=== PATIENT | female | born 1955 ===

== ENCOUNTER → 2024-10-31 | Outpatient (CLI) | payer OTHER ==
[2024-10-31 11:32] LABS: BASOPHILS ABSOLUTE AUTO 0.06 K/mm3 (0.00-0.23); BASOPHILS PERCENT AUTO 1 % (0-2); EOSINOPHILS ABSOLUTE AUTO 0.18 K/mm3 (0.00-0.68); EOSINOPHILS PERCENT AUTO 3 % (0-6); Hematocrit 40.8 % (33.0-51.0); Hemoglobin 13.7 g/dL (11.5-16.0); IMMATURE GRAN ABSOLUTE AUTO 0.02 K/mm3 (0.00-0.10); IMMATURE GRAN PERCENT AUTO 0 % (0-1); LYMPHOCYTES ABSOLUTE AUTO 1.55 K/mm3 (0.84-5.20); LYMPHOCYTES PERCENT AUTO 26 % (21-46); MONOCYTES ABSOLUTE AUTO 0.43 K/mm3 (0.16-1.47); MONOCYTES PERCENT AUTO 7 % (4-13); Mean Corpuscular HGB Conc 33.6 g/dL (31.5-36.5); Mean Corpuscular Volume 95 fL (80-100); NEUTROPHILS ABSOLUTE AUTO 3.71 K/mm3 (1.96-9.15); NEUTROPHILS PERCENT AUTO 62 % (41-73); NRBC ABSOLUTE 0.00 K/mm3 (0.00-0.02); NRBC Auto 0.0 /100 WBC (0.0-0.2); Platelet Count 276 K/mm3 (150-400); RDW Coefficient Variation 12.7 % (11.7-14.2); RDW Standard Deviation 44.1 fL (35.1-46.3)
[2024-10-31 11:50] LABS: Prothrombin Time Results 11.2 Sec (9.7-11.5)
[2024-10-31 12:27] LABS: Alanine Aminotransfer (ALT/SGP 26 U/L (12-78); Albumin, Blood 3.4 g/dL (3.4-5.0); Albumin/Globulin Ratio 0.9 (0.8-1.8); Anion Gap 6 mmol/L (3-11); Aspartate Aminotrans (AST/SGOT 16 U/L (12-37); Bilirubin, Total 0.6 mg/dL (0.1-1.0); Blood Urea Nitrogen 9 mg/dL (8-24); CHOL/HDL RATIO 2.9; CO2, Blood 33 mmol/L (21-32); Calcium, Blood 9.6 mg/dL (8.5-10.1); Chloride, Blood 104 mmol/L (98-108); Cholesterol 198 mg/dL (50-200); Creatinine, Blood 0.84 mg/dL (0.40-1.00); Globulin, Blood 3.9 g/dL (2.2-4.0); Glucose, Blood 100 mg/dL (70-99); HDL Cholesterol 68 mg/dL (>39); LDL/HDL RATIO 1.6; Low Density Lipoprotein Chol 107 mg/dL (0-110); Potassium, Blood 3.7 mmol/L (3.5-5.5); Sodium, Blood 139 mmol/L (136-145); Thyroid Stimulating Hormone 2.310 uIU/mL (0.360-4.800); Total Protein, Blood 7.3 g/dL (6.4-8.2); Triglycerides 117 mg/dL (30-160); Very Low Density Lipoprot Chol 23 mg/dL (6-32)
[2024-10-31 17:22] LABS: Creatinine, Urine Random 91.9 mg/dL (27.00-270.00); Microalb/Creat Ratio UR, Rand 79.761 mg/g (0.000-30.000); Microalbumin, Random Urine 73.3 mg/L (0.000-20.000)
== END ==
LOC: LAB 10:34 → LAB SHORT 10:34
PROVIDERS: Family Medicine
DX: I10 Essential (primary) hypertension (principal); E66.01 Morbid (severe) obesity due to excess calories; R23.3 Spontaneous ecchymoses; R73.9 Hyperglycemia, unspecified
CPT/HCPCS: 80053; 80061; 82043; 82570; 83036; 84443; 85025; 85610